=== PATIENT | female | born 1975 | race American Indian/Alaskan Native ===

== ENCOUNTER → 2024-01-03 10:41 | Outpatient (REF) | payer OTHER, SELFPAY ==
[2024-01-03 11:17] LABS: % Basophils 0.7 % (0-2); % Eosinophils 1.9 % (0-6); % Immature Granulocytes 0.3 % (0-0.5); % Lymphocytes 31.1 % (20.5-51.1); % Monocytes 6.2 % (1.7-9.3); % Neutrophils 59.8 % (42.2-75.2); Absolute Basophils 0.1 10^3/uL (0-0.2); Absolute Eosinophils 0.1 10^3/uL (0-0.7); Absolute Lymphocytes 2.2 10^3/uL (1.2-3.4); Absolute Monocytes 0.4 10^3/uL (0.1-0.6); Absolute Neutrophils 4.2 10^3/uL (1.4-6.5); Hematocrit 32.1 % (37.0-47.0); Hemoglobin 10.9 g/dL (12.0-16.0); Mean Corpuscular Hgb 26.8 pg (27.0-31.0); Mean Corpuscular Volume 78.9 fL (81.0-99.0); Nucleated Red Blood Cells % 0 %; Platelet Count 264 10^3/uL (130-400); Red Blood Cell Count 4.07 10^6/uL (4.20-5.40); Red Cell Dist. Width 13.1 % (11.5-14.5)
[2024-01-03 11:42] LABS: ALT (SGPT) 11 U/L (0-35); AST (SGOT) 19 U/L (14-36); Albumin 4.3 g/dl (3.5-5.0); Alkaline Phosphatase 49 U/L (38-126); Blood Urea Nitrogen 20 mg/dl (7-17); Calcium 9.4 mg/dl (8.4-10.2); Carbon Dioxide 26 mmol/L (22-30); Chloride 103 mmol/L (98-107); Glucose 84 mg/dl (70-99); Potassium 4.9 mmol/L (3.5-5.1); Sodium 141 mmol/L (135-145); Total Bilirubin 0.3 mg/dl (0.2-1.3); Total Protein 7.4 g/dl (6.3-8.2); eGFR 55.49
== END ==
LOC: REG 10:41
PROVIDERS: ATTENDING PHYSICIAN Internal Medicine
DX: Q61.3 Polycystic kidney, unspecified (principal); N18.31 Chronic kidney disease, stage 3a; R10.32 Left lower quadrant pain; Z87.442 Personal history of urinary calculi
CPT/HCPCS: 36415; 76770; 80053; 85025

== ENCOUNTER → 2024-01-10 07:55 | Outpatient (REF) | payer OTHER, SELFPAY | LOC: WDC 07:55 | PROVIDERS: ATTENDING PHYSICIAN Nurse Practitioner Adult Health; FAMILY PHYSICIAN Internal Medicine | DX: Z12.31 Encounter for screening mammogram for malignant neoplasm of breast (principal) | CPT/HCPCS: 77063; 77067 ==

== ENCOUNTER → 2024-05-06 16:02 | Outpatient (REF) | payer OTHER, SELFPAY | LOC: RAD 16:02 | PROVIDERS: ATTENDING PHYSICIAN Internal Medicine | DX: Z01.419 Encounter for gynecological examination (general) (routine) without abnormal findings (principal); N83.202 Unspecified ovarian cyst, left side; D50.9 Iron deficiency anemia, unspecified; R10.30 Lower abdominal pain, unspecified | CPT/HCPCS: 76830; 76856 ==

== ENCOUNTER → 2024-07-08 11:34 | Outpatient (REF) | payer OTHER, SELFPAY | LOC: RAD 11:34 | PROVIDERS: ATTENDING PHYSICIAN Nurse Practitioner Adult Health; FAMILY PHYSICIAN Internal Medicine | DX: N84.0 Polyp of corpus uteri (principal) | CPT/HCPCS: 76857 ==

== ENCOUNTER 2024-11-24 12:44 | Emergency (ER) | payer OTHER, SELFPAY ==
[2024-11-24 12:46] VITALS: BP 153/90
--- NOTE | 2024-11-24 13:23 | ED.GENMED ---
History of Present Illness
General
Chief Complaint: Musculo-Skeletal Complaint
Source: patient
Time Seen by Provider: 11/24/24 12:54
History of Present Illness
History of Present Illness:
49-year-old female with past medical history of hypertension and polycystic kidney disease presents to the emergency department for evaluation of nontraumatic right knee pain, acute on chronic, noting that she gets biannual injections into her knee
by Dr. Ward but unfortunately had to miss her last appointment which would have been in August [place]. Patient states last night she started feeling increased cracking sensation
in her leg. Patient attempted to contact the office for a visit but was unable to have an appointment until December 10, reports the front office secretary staff told her to come to the ER for further treatment. Patient has no other concerns. She took some
Tylenol last night with minimal relief. Denies fevers, chills, rigors, calf pain or edema, chest pain or shortness of breath.
Past History
Past History
ED Past Medical History: HTN and Other (Polycystic kidney disease)
ED Past Surgical History: Gynecological
Social History
Tobacco: Non-smoker
Alcohol: None
Drug: None
Personal:
Living: with family
Review of Systems
Review of Systems
All Other Systems: ROS reviewed and negative except as documented in HPI and ROS
Phy Exam
Physical Exam
Physical Exam:
GENERAL: Alert , in no apparent distress
EYE: conjunctiva clear
Head: Normocephalic atraumatic
NECK: Supple,
ENT: mmm.
LUNGS: no acute respiratory distress
NEUROLOGICAL: Alert and oriented
SKIN: Warm and dry, skin intact.
MUSCULOSKELETAL: Right knee: No obvious deformity, erythema, edema, ecchymosis, abrasions or lacerations, no effusions. There is no calf tenderness or edema. Extremity is warm and well-perfused. Patient allows for full range of motion with
difficulty. There is some generalized tenderness anteriorly along the patella
PSYCH: Normal and appropriate interaction.
Scores
Heart Failure Risk
Heart Failure Risk Score: Not Applicable
Heart Score for Chest Pain Patients
STEMI patient?: Not applicable
Withdrawal Assessment of Alcohol
Withdrawal Assessment Completed?: Not applicable
Course
Vital Signs
Initial and Last Documented VS:
Initial Vital Signs
Temp Pulse Resp BP Pulse Ox
98.5 F 106 16 153/90 100
11/24/24 12:46 11/24/24 12:46 11/24/24 12:46 11/24/24 12:46 11/24/24 12:46
Last Documented Vital Signs
Temp Pulse Resp BP Pulse Ox
98.4 F 88 18 113/80 100
11/24/24 13:30 11/24/24 13:30 11/24/24 13:30 11/24/24 13:30 11/24/24 13:30
MDM/Problems Addressed
Differential Diagnosis Includes:
Osteoarthritis
Rheumatoid arthritis
Tendinitis
Bursitis
gout
Septic joint
Ligamentous injury
DVT considered given recent travel
MDM/Problems Addressed:
49-year-old female presenting to the emergency department for evaluation for right knee pain at the request of the orthopedic office. Patient attempted [id number] Tylenol with minimal relief. She was hoping for injection to be completed
today however it is unclear as to what exact type of injection patient receives as well as explained to patient this is not procedure to be performed in the emergency department and this is outpatient based treatment. I did offer her further pain
control here. Patient upset as she thought further treatment would be done here since she was sent by the office staff. I did reach out to Dr. Ward who is on-call for [facility] orthopedics and he will have the office staff reach out to
schedule her for an appointment next week. Given the patient's recent travel I did offer to obtain an ultrasound study however the patient declines.
*Pulse Oximetry
SaO2: 100
Oxygen Mode of Delivery: Room air
Patient hypoxic: no
*Critical Care Note
Total Time (30-74mins, 75-104mins- exclusive of procedures): Not Applicable
Patient Management
Discussion with other providers: Obstetrics And Gynecology Professor
ED Attending Note
-
Portions of this chart may have been created with voice recognition software.� Occasional wrong word or��sound alike� substitutions may have occurred due to the inherent limitations of voice recognition software.
Discharge Plan
Departure
Patient Disposition: Home (Routine Discharge)
Date of Disposition: 11/24/24
Time of Disposition: 13:23
Patient with high blood pressure during this ER visit?: No
Discharge Problem:
Acute pain of right knee
Instructions: Knee Pain (DC)
Interventions
Interventions:
*Risk Screen - Suicide Last Done: 11/24/24 12:46
*General Assessment Last Done: 11/24/24 12:46
*Neglect/Abuse Screening Last Done: 11/24/24 12:46
*ED- Fall Risk Assessment Last Done: 11/24/24 13:30
*ED COVID-19 Vaccine History Last Done: 11/24/24 12:46
*Nursing Disposition Last Done: 11/24/24 13:30
ED-Musculoskeletal Assessment Last Done: 11/24/24 13:27
Discharge Date and Time
Discharge Date/Time: 11/24/24 13:33
Print Language: MEXICAN
[2024-11-24 13:30] VITALS: BP 113/80
== END 2024-11-24 13:33 | disposition home or self-care (01) ==
LOC: EMR 12:44
PROVIDERS: EMERGENCY PHYSICIAN Emergency Medicine; FAMILY PHYSICIAN Internal Medicine
DX: M25.561 Pain in right knee (principal); G89.29 Other chronic pain; I10 Essential (primary) hypertension; Q61.3 Polycystic kidney, unspecified
CPT/HCPCS: 99281

== ENCOUNTER → 2025-03-08 19:49 | Outpatient (REF) | payer OTHER, SELFPAY | LOC: WDC 19:49 | PROVIDERS: ATTENDING PHYSICIAN Nurse Practitioner Adult Health | DX: Z12.31 Encounter for screening mammogram for malignant neoplasm of breast (principal) | CPT/HCPCS: 77063; 77067 ==